=== PATIENT | male | born 1945 | race Caucasian/White ===

== ENCOUNTER 2017-09-16 11:32 | Emergency (ER) | payer MEDICARE ==
[~2017-09-16] VITALS: Ht 177.8 cm; Wt 116.0 kg
[~2017-09-16 11:32] MED LIST: ADVAIR DISK2 INH; ALEVE220 M1 PO; ASPIRIN325 MG PO; BD INSULIN SC; BENTYL20 MG OR; CELEBREX100 M1 PO; CELEBREX200 MG PO; CYANOCOBALAM1000 MCG IM; DILAUDID2 MG OR; FLOMAX0.4 M1 PO; HUMULIN 70/30 SC; HYDROCO/APAP1 T10 PO; LANTUS100 MG/ML SC; LORAZEPAM0.5 MG PO; LORTAB 7.5 OR; LORTAB5 OR; MEDROL4 M1 PO; MELOXICAM15 MG PO; METFORMIN500 MG PO; NORCO1 TA2 PO; NOVOLIN 70/30 RELION SC; NOVOLIN R SC; NOVOLOG MIX100 U/ML SC; PEN NEEDLE1 SC; PERCOCET1 TA4 PO; PERSANTINE25 MG PO; PLAVIX75 MG PO; PROZAC20 M1 PO; PROZAC20 MG PO; PROZAC40 MG PO; SENOKOT S1 TAB PO; SENOKOT8.6 MG PO; TRAMADOL HCL50 MG PO; TRUETEST STRIPS VI; TRUETEST STRIPS XX; VIAGRA25 MG OR; VICTOZA18 MG/3 ML SC; XANAX0.5 MG PO; XANAX1 MG PO; ZOLOFT50 MG PO; ZYRTEC10 M5 PO
[2017-09-16] MEDS ORDERED: DOXYCYC MONO100 M1 PO (13:24)
[2017-09-16 13:25] VITALS: BP 132/63
== END 2017-09-16 13:25 | disposition home or self-care (01) ==
LOC: ED 11:32
DX: S91.101A Unspecified open wound of right great toe without damage to nail, initial encounter (principal); E11.9 Type 2 diabetes mellitus without complications; Z79.4 Long term (current) use of insulin; M54.9 Dorsalgia, unspecified; Z79.891 Long term (current) use of opiate analgesic

== ENCOUNTER 2018-01-05 10:43 | Emergency (ER) | payer MEDICARE ==
[~2018-01-05] VITALS: Ht 177.8 cm; Wt 109.0 kg
[~2018-01-05 10:43] MED LIST changes: +DOXYCYC MONO100 M1 PO
[2018-01-05 11:50] LABS: IMMATURE GRANULOCYTES 0.9 % (0.0-1.0); MEAN CELL VOLUME 90.1 fL CALC (80.0-100.0); MEAN CORPUSCULAR HGB 31.7 pG CALC (26.0-32.0); MEAN CORPUSCULAR HGB CONC 35.2 g/L CALC (32.0-36.0); NEUT# 3.02 thou/uL (1.82-7.42); RED BLOOD COUNT 4.23 mill/uL (4.70-6.10); RED CELL DISTRI WIDTH 13.2 % (11.5-15.5)
[2018-01-05 12:04] LABS: HEMATOCRIT 38.1 % (39.0-50.0); HEMOGLOBIN 13.4 g/dl (14.0-18.0)
[2018-01-05 12:29] LABS: ALKALINE PHOSPHATASE 79 u/l (38-126); ANION GAP 15 (6-22 (CALC)); BILIRUBIN, TOTAL 0.5 mg/dL (0.0-1.4); BUN 10 mg/dL (8-23); BUN/CREATININE RATIO 17 (12-20 (CALC)); CARBON DIOXIDE 24 mmol/l (22-30); CHLORIDE 103 mmol/l (95-108); CREATININE 0.6 mg/dL (0.7-1.3); GFR > 60 ML/MIN (>=60 (CALC)); GFR FOR AFR.AMER. > 60 ML/MIN (>=60 (CALC)); SGOT/AST 22 u/l (19-48); SGPT/ALT 49 u/l (11-66); SODIUM 139 mmol/l (137-146)
[2018-01-05 12:30] LABS: ALBUMIN 3.3 g/dL (3.2-5.0)
[2018-01-05 12:41] LABS: MYOGLOBIN 44 ng/mL (0 - 121)
[2018-01-05] MEDS ORDERED: NAPROXEN DR500 MG PO (12:57)
[2018-01-05 13:12] VITALS: BP 150/67
== END 2018-01-05 13:21 | disposition home or self-care (01) ==
LOC: ED 10:43
PROVIDERS: Emergency Medicine
DX: S29.012A Strain of muscle and tendon of back wall of thorax, initial encounter (principal); S80.212A Abrasion, left knee, initial encounter; S50.312A Abrasion of left elbow, initial encounter; F41.9 Anxiety disorder, unspecified; E11.9 Type 2 diabetes mellitus without complications; G89.29 Other chronic pain; M54.9 Dorsalgia, unspecified; W18.30XA Fall on same level, unspecified, initial encounter; Y92.71 Barn as the place of occurrence of the external cause; Z86.73 Personal history of transient ischemic attack (TIA), and cerebral infarction without residual deficits

== ENCOUNTER 2019-10-25 | Inpatient (IN) | payer MEDICARE ==
[~2019-10-25] MED LIST changes: +NAPROXEN DR500 MG PO
[2019-10-25 11:47] LABS: HEMATOCRIT 42.5 % (39.0-50.0); HEMOGLOBIN 14.5 g/dl (14.0-18.0); IMMATURE GRANULOCYTES 0.7 % (0.0-5.0); MEAN CELL VOLUME 91.2 fL CALC (80.0-100.0); MEAN CORPUSCULAR HGB 31.1 pG CALC (26.0-32.0); MEAN CORPUSCULAR HGB CONC 34.1 g/L CALC (32.0-36.0); NEUT# 25.91 thou/uL (1.82-7.42); RED BLOOD COUNT 4.66 mill/uL (4.70-6.10); RED CELL DISTRI WIDTH 13.1 % (11.5-15.5)
[2019-10-25 11:50] LABS: INTERNATIONAL NORMALIZED RATIO 1.1 RATIO (0.7-1.3); PROTHROMBIN TIME 11.6 SECONDS (9.0-12.5)
[2019-10-25 11:55] LABS: ALKALINE PHOSPHATASE 105 u/l (38-126); BUN 21 mg/dL (8-23); BUN/CREATININE RATIO 25 (12-20 (CALC)); CARBON DIOXIDE 23 mmol/l (22-30); CHLORIDE 98 mmol/l (95-108); CREATININE 0.8 mg/dL (0.7-1.3); GFR > 60 ML/MIN (>=60 (CALC)); GFR FOR AFR.AMER. > 60 ML/MIN (>=60 (CALC)); SGOT/AST 30 u/l (19-48); SODIUM 133 mmol/l (137-146)
[2019-10-25 11:59] LABS: ALBUMIN 4.1 g/dL (3.2-5.0); ANION GAP 17 (6-22 (CALC)); BILIRUBIN, TOTAL 1.2 mg/dL (0.0-1.4)
[2019-10-25 12:03] LABS: MYOGLOBIN 93 ng/mL (0 - 121)
[2019-10-25 14:16] LABS: URINE BILIRUBIN - DIPSTICK NEGATIVE (NEGATIVE); URINE BLOOD DIPSTICK NEGATIVE (NEGATIVE); URINE COLOR YELLOW; URINE GLUCOSE - DIPSTICK 500 mg/dL (NEGATIVE); URINE KETONE TRACE mg/dL (NEGATIVE); URINE LEUK ESTERASE NEGATIVE (NEGATIVE); URINE NITRITE - DIPSTICK NEGATIVE (Negative); URINE PH 5.5 (4.5-8.0); URINE PROTEIN - DIPSTICK NEGATIVE (NEG-TRACE)
[2019-10-25] MEDS ORDERED: NOVOLIN 70/30 INNLT SC ×2 (14:36→14:42)
[2019-10-25] MEDS ORDERED: TOUJEO SOL300 UNIT/M SC (14:58)
[2019-10-25 15:53] VITALS: BP 141/74
[2019-10-25] MEDS ORDERED: ASPIRIN 81 LOW81 MG PO (15:57)
[2019-10-25] MEDS ORDERED: VALIUM2 MG PO (15:58)
[2019-10-25 18:55] VITALS: BP 127/59
[2019-10-26] VITALS (7 sets, daily range): BP systolic 118–158; BP diastolic 48–77
[2019-10-26 05:57] LABS: MEAN CELL VOLUME 92.9 fL CALC (80.0-100.0); MEAN CORPUSCULAR HGB 30.5 pG CALC (26.0-32.0); MEAN CORPUSCULAR HGB CONC 32.9 g/L CALC (32.0-36.0); RED BLOOD COUNT 3.93 mill/uL (4.70-6.10); RED CELL DISTRI WIDTH 13.2 % (11.5-15.5)
[2019-10-26 06:06] LABS: HEMATOCRIT 36.5 % (39.0-50.0)
[2019-10-26 06:14] LABS: ANION GAP 12 (6-22 (CALC)); BUN 15 mg/dL (8-23); BUN/CREATININE RATIO 29 (12-20 (CALC)); CARBON DIOXIDE 20 mmol/l (22-30); CHLORIDE 105 mmol/l (95-108); CREATININE 0.5 mg/dL (0.7-1.3); GFR > 60 ML/MIN (>=60 (CALC)); GFR FOR AFR.AMER. > 60 ML/MIN (>=60 (CALC)); SODIUM 133 mmol/l (137-146)
[2019-10-27 00:02] VITALS: BP 136/64
[2019-10-27 03:47] VITALS: BP 150/79
== END 2019-10-27 07:11 | disposition left against medical advice (07) | DRG 872 ==
PROVIDERS: ADMIT Internal Medicine
DX: A41.9 Sepsis, unspecified organism (principal); E87.2 Acidosis; E11.621 Type 2 diabetes mellitus with foot ulcer; L97.519 Non-pressure chronic ulcer of other part of right foot with unspecified severity; E11.65 Type 2 diabetes mellitus with hyperglycemia; E11.51 Type 2 diabetes mellitus with diabetic peripheral angiopathy without gangrene; F41.9 Anxiety disorder, unspecified; J02.0 Streptococcal pharyngitis; F17.200 Nicotine dependence, unspecified, uncomplicated; B95.61 Methicillin susceptible Staphylococcus aureus infection as the cause of diseases classified elsewhere; Z88.0 Allergy status to penicillin; Z86.73 Personal history of transient ischemic attack (TIA), and cerebral infarction without residual deficits; Z79.4 Long term (current) use of insulin
CPT/HCPCS: Q9967

== ENCOUNTER 2020-06-01 16:12 | Emergency (ER) | payer MEDICARE ==
[~2020-06-01] VITALS: Ht 182.9 cm; Wt 112.3 kg
[~2020-06-01 16:12] MED LIST changes: +ASPIRIN 81 LOW81 MG PO; +NOVOLIN 70/30 INNLT SC; +TOUJEO SOL300 UNIT/M SC; +VALIUM2 MG PO
[2020-06-01] MEDS ORDERED: MUPIROCIN2 % EX (18:21)
[2020-06-01 18:48] VITALS: BP 132/60
== END 2020-06-01 18:48 | disposition home or self-care (01) ==
LOC: ED 16:12
DX: S00.81XA Abrasion of other part of head, initial encounter (principal); S00.31XA Abrasion of nose, initial encounter; S60.410A Abrasion of right index finger, initial encounter; S80.211A Abrasion, right knee, initial encounter; S00.83XA Contusion of other part of head, initial encounter; S00.33XA Contusion of nose, initial encounter; S40.022A Contusion of left upper arm, initial encounter; S40.021A Contusion of right upper arm, initial encounter; E11.9 Type 2 diabetes mellitus without complications; F41.9 Anxiety disorder, unspecified; M54.9 Dorsalgia, unspecified; G89.29 Other chronic pain; W01.0XXA Fall on same level from slipping, tripping and stumbling without subsequent striking against object, initial encounter; Y92.512 Supermarket, store or market as the place of occurrence of the external cause; Z79.4 Long term (current) use of insulin; Z86.73 Personal history of transient ischemic attack (TIA), and cerebral infarction without residual deficits

== ENCOUNTER 2024-04-03 18:28 | Observation (INO) | payer MEDICARE ==
[~2024-04-03] VITALS: Ht 182.9 cm; Wt 105.5 kg
[2024-04-03] VITALS (15 sets, daily range): BP systolic 90–181; BP diastolic 45–88
[~2024-04-03 18:28] MED LIST changes: +MUPIROCIN2 % EX
--- NOTE | 2024-04-03 18:28 | NUR ---
PT TO ROOM 6 VIA EMS
--- NOTE | 2024-04-03 19:00 | NUR ---
REPORT RECIEVED FROM PAGE SULLIVAN. PT RESTING IN SUPINE POSITION FOR COMFORT, AWAITING MD LOZANO AT THIS TIME.
[2024-04-03 19:19] LABS: URINE BILIRUBIN - DIPSTICK Negative (NEGATIVE); URINE BLOOD DIPSTICK Negative (NEGATIVE); URINE GLUCOSE - DIPSTICK >=1000 mg/dL (NEGATIVE); URINE KETONE Negative (NEGATIVE); URINE LEUK ESTERASE Negative (NEGATIVE); URINE NITRITE - DIPSTICK Negative (Negative); URINE PH 5.5 (4.5-8.0); URINE PROTEIN - DIPSTICK Negative (NEG-TRACE); URINE SPECIFIC GRAVITY 1.025; URINE UROBILINOGEN - DIPSTICK 0.2 E.U./dL (0.2)
[2024-04-03 19:19] LABS: BASO% 0.5 % (0-3); EOS% 0.9 % (0-8); HEMATOCRIT 46.3 % (39.0-50.0); HEMOGLOBIN 15.6 g/dl (14.0-18.0); IMMATURE GRANULOCYTES 1.2 % (0.0-5.0); LYMPH% 8.3 % (15-41); MEAN CELL VOLUME 89.9 fL CALC (80.0-100.0); MEAN CORPUSCULAR HGB 30.3 pG CALC (26.0-32.0); MEAN CORPUSCULAR HGB CONC 33.7 g/dL CAL (32.0-36.0); MONO% 7.4 % (2-13); NEUT# 10.77 thou/uL (1.82-7.42); NEUT% 81.7 % (42-76); RED BLOOD COUNT 5.15 mill/uL (4.70-6.10); RED CELL DISTRI WIDTH 13.6 % (11.5-15.5)
[2024-04-03 19:26] LABS: URINE COLOR Yellow
[2024-04-03 19:42] LABS: CPK 264 u/l (55-170)
[2024-04-03] MEDS ORDERED: KETOROLAC TROMETHAMINE 30 MG/ML SDV IM ONE (19:55)
--- NOTE | 2024-04-03 20:30 | NUR ---
PT MEDICATED PER MD ORDERS, EKG OBTAINED, LIGHTS DIMMED FOR PT COMFORT. PT UPDATED ON POC, AWAITING ALL RESULTS AT THIS TIME.
[2024-04-03 21:09] LABS: ALBUMIN 4.2 g/dL (3.2-5.0); ALKALINE PHOSPHATASE 91 u/l (38-126); ANION GAP 10 (6-22 (CALC)); BUN 15 mg/dL (8-23); BUN/CREATININE RATIO 23 (12-20 (CALC)); CARBON DIOXIDE 25 mmol/l (22-30); CHLORIDE 106 mmol/l (95-108); CREATININE 0.7 mg/dL (0.7-1.3); ESTIMATED GFR 94 ML/MIN (>=90 (CALC)); POTASSIUM 4.2 mmol/l (3.5-5.1); SGOT/AST 30 u/l (19-48); SODIUM 136 mmol/l (137-146)
[2024-04-03 21:15] LABS: BILIRUBIN, TOTAL 0.9 mg/dL (0.2-1.3)
--- NOTE | 2024-04-03 21:35 | NUR ---
PT VOICES MODERATE RELIEF OF PAIN AT THIS TIME. PT UPDATED ON POC, AWAITING ALL RESULTS AT THIS TIME. PT VERBALIZES UNDERSTANDING WITH NO FURTHER QUESTIONS OR CONCERNS. PT CALL LIGHT WITHIN REACH, LIGHTS DIMMED FOR PT COMFORT.
[2024-04-03] MEDS ORDERED: MAGNESIUM HYDROXIDE 30 ML UDC PO PRN (21:50)
[2024-04-03] MEDS ORDERED: SODIUM CHLORIDE 0.9% 1,000 ML IV PRN (21:50)
[2024-04-03] MEDS ORDERED: ACETAMINOPHEN 325 MG/TAB PO PRN (21:50)
[2024-04-03] MEDS ORDERED: oxyCODONE 10MG/APAP 325 MG 1 COMBO TAB PO PRN (21:55)
[2024-04-03] MEDS ORDERED: OXYCODONE5 M1 PO (22:09)
[2024-04-03] MEDS ORDERED: GABAPENTIN300 M2 PO (22:11)
[2024-04-03] MEDS ORDERED: PAROXETINE30 MG PO (22:13)
[2024-04-03] MEDS ORDERED: METHIMAZOLE10 MG PO (22:14)
--- NOTE | 2024-04-03 22:54 | NUR ---
REPORT GIVEN TO PAGE LUNSFORD. PT AWAIT[place]SP[place] [facility] [place]
--- NOTE | 2024-04-03 23:02 | NUR ---
[place] [facility] [place] SALES SUPPORT ASSISTANT AT BEDSIDE.
--- NOTE | 2024-04-03 23:09 | NUR ---
PT ARRIVED TO [facility] [place] VIA WHEELCHAIR. PT ABLE TO STAND AND PIVOT TO TRANSFER TO THE BED FROM THE WHEELCHAIR. PERSONAL BELONGINGS IN ROOM AT BEDSIDE TABLE. HEART MONITOR ON NUMBER 8 READING SR. YELLOW SOCKS, YELLOW WRIST BAND, AND BED ALARM ON SINCE PT IS A FALL RISK SINCE HE IS HERE DUE TO A FALL.
--- NOTE | 2024-04-03 23:34 | NUR ---
VITALS: BLOOD PRESSURE:144/69 OX:92 PULSE:88 TEMP:97.0 BED SCALE WEIGHT 109.0
--- NOTE | 2024-04-03 23:45 | NUR ---
ASSESSMENT AND ADMISSION DONE. VS WNL ON RA. IV ON SARBJIT FLUSHED WORKING PROPERLY. SCATTERED BRUISING AND BUE SKIN TEARS. VS WNL ON RA. PT STATING HAVING PAIN 10/10 ON LEFT HIP. NURSE PROVIDED PAIN MEDICATION. HEART MONITOR READING SR. LUNGS SOUND CLEAR. NO EDEMA. CALL LIGHT WITHIN REACH. PLAN OF CARE ONGOING.
--- NOTE | 2024-04-04 | NUR ---
PT HAD HOME MEDICATION AT BEDSIDE NURSE TOOK AND EXPLAINED TO PT THAT MEDICATION WOULD BE PLACED IN MED ROOM TILL HE GOT DISCHARGE. WHEN NURSE NOTICED THAT THERE WERE CONTROLLED MEDICATIONS PRESENT SHE HAD A SECOND NURSE ASSIST HER. FABIOLA NURSE WAS PRESENT WHILE MAIN NURSE COUNT EVERY CONTROLLED MEDICATION WITH THE PT WATCHED THEN ALL BOTTLES PLACED IN A BAG AND SEALED IN FRONT OF THE PT BEFORE LEAVING HIS ROOM. BAG WAS PLACED IN MED ROOM.
[2024-04-04 03:36] VITALS: BP 150/92
--- NOTE | 2024-04-04 04:04 | NUR ---
PT RESTING NO DISTRESS NOTED. IV SITE CHECKED WORKING PROPERLY INFUSION ONGOING. CALL LIGHT WITHIN REACH. PLAN OF CARE ONGOING.
[2024-04-04 04:19] VITALS: BP 150/92
[2024-04-04] MEDS ORDERED: INSULIN LISPRO 100 UNITS/ML ML SC SCH (07:00)
[2024-04-04 07:02] VITALS: BP 197/101
[2024-04-04 07:27] VITALS: BP 180/80
--- NOTE | 2024-04-04 07:28 | NUR ---
PT IS AOX3, RESPIRATIONS ARE EVEN AND UNLABORED, LUNGS ARE CLEAR, BOWEL SOUNDS ACTIVE, PEDAL PULSES PALPABLE TO TOUCH, TRACE PITTING EDEMA NOTED TO RIGHT FOOT, BP ELEVATED TTHIS MORNING AT 197/101, RECHECKED PT'S BP 180/80, PT REPORTS PAIN IN LEFT HIP AT A 10 ON A 0-10 PAIN SCALE, WILL PROVIDE PT WITH THE ORDERED PRN PAIN MEDICATION.
[2024-04-04] MEDS ORDERED: LOSARTAN Potassium 50 MG/TAB PO SCH (09:00)
[2024-04-04] MEDS ORDERED: TAMSULOSIN HCL 0.4 MG CAP PO SCH (09:00)
--- NOTE | 2024-04-04 09:26 | NUR ---
PATIENT ASKING FOR "PAPPAER I NEED TO SIGN TO GET OUT OF HERE" EXPLAINED TO PT THAT PAPRENNY IS A RELEASE BECAUSE HE WOULD BE LEAVING AGAINST MEDICAL [facility]. PT ALREADY TOLD THEODORA CLEARYP HE WANTS TO LEAVE AMA. TALKED TO PT ABOUT HIS ELEVATED BLOOD PRESSURE AND THE MEDICATION COZZAR THE DOCTOR ORDERED FOR HIM. PT IS REFUSING TO STAY AND SAID HE WILL GET IT OUTSIDE THE HOSPITAL. PT WAITING FOR HIS RIDE TO ARRIVE NOW.
--- NOTE | 2024-04-04 09:44 | NUR ---
PT SIGNED MARI MOODY DC'D IV, REMOVED TELE BOX AND PLACED IT IN THE RETURN BIN AT THE NURSES STATION. DISCUSSED WITH PT WILL RETURN PT'S MEDICATIONS WHEN HIS RIDE ARRIVES.
--- NOTE | 2024-04-04 10:09 | NUR ---
RETURNED PT'S HOME MEDICATIONS TO PT. INVENTORY FORM SIGNED AND IN CHART.
--- NOTE | 2024-04-04 10:10 | NUR ---
PT LEFT THE FLOOR WITH BELONGINGS IN HAND.
[2024-04-04] MEDS ORDERED: ENOXAPARIN SODIUM 40 MG/0.4 ML SYR SC SCH (21:00)
== END 2024-04-04 10:09 | disposition left against medical advice (07) ==
LOC: ED 18:28 → ED-I 21:15 → ED 21:49 → MS2 21:50
PROVIDERS: Family Medicine; Internal Medicine; ADMIT Internal Medicine; ATTEND Internal Medicine
DX: R53.1 Weakness (principal); T79.6XXA Traumatic ischemia of muscle, initial encounter; S00.01XA Abrasion of scalp, initial encounter; M25.552 Pain in left hip; I10 Essential (primary) hypertension; E11.9 Type 2 diabetes mellitus without complications; F41.9 Anxiety disorder, unspecified; E66.9 Obesity, unspecified; I65.23 Occlusion and stenosis of bilateral carotid arteries; M54.9 Dorsalgia, unspecified; G89.29 Other chronic pain; F17.200 Nicotine dependence, unspecified, uncomplicated; W18.39XA Other fall on same level, initial encounter; Y92.000 Kitchen of unspecified non-institutional (private) residence as the place of occurrence of the external cause; Z86.73 Personal history of transient ischemic attack (TIA), and cerebral infarction without residual deficits; Z85.46 Personal history of malignant neoplasm of prostate; Z96.651 Presence of right artificial knee joint; Z95.820 Peripheral vascular angioplasty status with implants and grafts; Z79.4 Long term (current) use of insulin; Z88.6 Allergy status to analgesic agent
CPT/HCPCS: G0378

== ENCOUNTER 2024-04-18 12:13 | Emergency (ER) | payer MEDICARE ==
[~2024-04-18] VITALS: Ht 182.9 cm; Wt 113.0 kg
[~2024-04-18 12:13] MED LIST changes: +GABAPENTIN300 M2 PO; +METHIMAZOLE10 MG PO; +OXYCODONE5 M1 PO; +PAROXETINE30 MG PO
[2024-04-18 12:21] VITALS: BP 110/80
[2024-04-18] MEDS ORDERED: oxyCODONE 5MG/ ACETAMINOPHEN 325MG TAB PO ONE (12:30)
[2024-04-18 12:31] VITALS: BP 125/58
[2024-04-18 12:57] LABS: EOS% 3.2 % (0-8); HEMOGLOBIN 14.2 g/dl (14.0-18.0); IMMATURE GRANULOCYTES 2.4 % (0.0-5.0); LYMPH% 17.7 % (15-41); MEAN CELL VOLUME 92.7 fL CALC (80.0-100.0); MEAN CORPUSCULAR HGB 30.6 pG CALC (26.0-32.0); MONO% 9.6 % (2-13); NEUT# 5.79 thou/uL (1.82-7.42); NEUT% 66.1 % (42-76); RED BLOOD COUNT 4.64 mill/uL (4.70-6.10); RED CELL DISTRI WIDTH 13.3 % (11.5-15.5)
[2024-04-18 13:01] VITALS: BP 103/38
[2024-04-18 13:25] LABS: ALBUMIN 3.9 g/dL (3.2-5.0); CREATININE 0.9 mg/dL (0.7-1.3); POTASSIUM 4.1 mmol/l (3.5-5.1); TOTAL PROTEIN 6.5 g/dL (6.3-8.2)
[2024-04-18 13:27] LABS: BILIRUBIN, TOTAL 0.5 mg/dL (0.2-1.3)
[2024-04-18 14:01] VITALS: BP 134/50
[2024-04-18 14:31] VITALS: BP 142/64
[2024-04-18 15:11] VITALS: BP 142/64
[2024-04-18 15:11] LABS: URINE BILIRUBIN - DIPSTICK Negative (NEGATIVE); URINE BLOOD DIPSTICK Negative (NEGATIVE); URINE GLUCOSE - DIPSTICK >=1000 mg/dL (NEGATIVE); URINE KETONE Trace mg/dL (NEGATIVE); URINE LEUK ESTERASE Negative (NEGATIVE); URINE NITRITE - DIPSTICK Negative (Negative); URINE PH 5.5 (4.5-8.0); URINE PROTEIN - DIPSTICK Negative (NEG-TRACE); URINE SPECIFIC GRAVITY 1.015; URINE UROBILINOGEN - DIPSTICK 0.2 E.U./dL (0.2)
[2024-04-18 15:13] LABS: URINE COLOR Yellow
== END 2024-04-18 15:40 | disposition home or self-care (01) ==
LOC: ED 12:13
PROVIDERS: Nurse Practitioner
DX: S09.90XA Unspecified injury of head, initial encounter (principal); I10 Essential (primary) hypertension; E11.9 Type 2 diabetes mellitus without complications; F41.9 Anxiety disorder, unspecified; M54.50 Low back pain, unspecified; G89.29 Other chronic pain; W18.30XA Fall on same level, unspecified, initial encounter; Z91.81 History of falling; Z79.4 Long term (current) use of insulin; Z86.73 Personal history of transient ischemic attack (TIA), and cerebral infarction without residual deficits